=== PATIENT | male | born 1995 | race Caucasian/White ===

== ENCOUNTER 2017-01-20 18:55 | Emergency (ER) | payer BC ==
[2017-01-20 19:02] VITALS: RESP 18
--- NOTE | 2017-01-20 19:17 | EDPHY ---
H & P Stated Complaint: st/fever/n/v jade fatigue seen at [facility] not better post abx Time Seen by Provider: 01/20/17 19:11 HPI/ROS: CHIEF COMPLAINT: Nasal congestion, cough, sore throat, body aches HISTORY OF PRESENT ILLNESS: 21-year-old male presents emergency department complaining of worsening nasal congestion, cough, sore throat and body aches. Patient has had the symptoms for 2 weeks, he was seen at work 1 week ago and started on 300 mg of cefdinir once daily, 20 mg of prednisone once daily and Tessalon Perles. He had a negative rapid strep at this time. No other tests were done. Patient reports post-tussive emesis. Patient denies diarrhea or pain. He reports a headache and pressure in his head which is worse when bending over. He feels pressure in his ears. Patient reports his symptoms have not improved since the medications. REVIEW OF SYSTEMS: A comprehensive 10 point review of systems is otherwise negative aside from elements mentioned in the history of present illness. Source: Patient Exam Limitations: No limitations - Personal History Current Tetanus/Diphtheria Vaccine: Unsure - Medical/Surgical History Hx Asthma: No Hx Chronic Respiratory Disease: No Hx Diabetes: No Hx Cardiac Disease: No Hx Renal Disease: No Hx Cirrhosis: No Hx Alcoholism: No Hx HIV/AIDS: No Other PMH: denies - Social History Smoking Status: Current some day smoker - Physical Exam Exam: General: Alert, nontoxic. ENT: Tympanic membranes clear, external auditory canal, external ear and surrounding soft tissue including over the mastoid unremarkable. Nasopharynx is injected, there is yellow rhinorrhea. Oropharynx with erythema. There is no exudate. Mild bilateral tonsillar hypertrophy. No asymmetry. The uvula is midline. No elevation of tongue. There is no hoarseness. No drooling, patient has good control of their oral secretions. No trismus. No stridor. Cardiac: Tachycardic rate and regular rhythm. Respiratory: Rhonchorous Neurological: no meningismus. Skin: No rashes. Constitutional: Initial Vital Signs Temperature (C) 36.6 C 01/20/17 18:59 Heart Rate 83 01/20/17 18:59 Respiratory Rate 18 01/20/17 18:59 Blood Pressure 120/78 01/20/17 18:59 O2 Sat (%) 95 01/20/17 18:59 O2 Delivery Mode Room Air Allergies/Adverse Reactions: No Known Allergies Allergy (Unverified 01/20/17 18:57) Home Medications: Medication Instructions Recorded Abx For ? Strep Throat 01/20/17 Fluticasone Nasal [Flonase Nasal 1 sprays NASAL DAILY #1 mdi 01/20/17 [place] (RX)] Guaifenesin/Codeine Phosphate 10 ml PO HS PRN #100 ml 01/20/17 [Guaifenesin-Codeine Liquid] Medical Decision Making - Diagnostics Imaging Results: Imaging Impressions Chest X-Ray 01/20/17 19:54 Impression: Findings consistent with airways disease are noted. Imaging: I viewed and interpreted images myself ED Course/Re-evaluation: 21-year-old male presents with URI symptoms x2 weeks not improving on cefdinir and prednisone. Chest x-ray obtained showing no evidence of pneumonia, influenza is negative, mono spot is positive. Patient is given 2 L of normal saline, Tylenol, Sudafed. He is given a DuoNeb in the emergency department. Patient is discharged home with a prescription for guaifenesin with codeine, albuterol inhaler, Flonase. He is instructed to rest, drink plenty of fluids and follow up with the primary care doctor listed he. He is given strict return precautions for worsening symptoms. Patient is given instructions on avoiding physical activity where he could sustain an injury to his abdomen. CBC shows an elevated white blood cell count at 20,000 with a left shift, platelets are normal. Differential Diagnosis: Diagnosis considered but not limited to strep pharyngitis, pneumonia, influenza , mononucleosis - Data Points Laboratory Results: Laboratory Results 01/20/17 20:32 01/20/17 01/20/17 01/20/17 20:32 19:55 19:53 WBC 20.89 10^3/uL H 10^3/uL (3.80-9.50) RBC 5.87 10^6/uL 10^6/uL (4.40-6.38) Hgb 16.5 g/dL g/dL (13.7-17.5) Hct 48.1 % % (40.0-51.0) MCV 81.9 fL fL (81.5-99.8) MCH 28.1 pg pg (27.9-34.1) MCHC 34.3 g/dL g/dL (32.4-36.7) RDW 14.0 % % (11.5-15.2) Plt Count 338 10^3/uL 10^3/uL (150-400) MPV 8.9 fL fL (8.7-11.7) Neut % (Auto) 77.0 % H % (39.3-74.2) Lymph % (Auto) 11.2 % L % (15.0-45.0) Sunflower % (Auto) 10.8 % % (4.5-13.0) Eos % (Auto) 0.0 % L % (0.6-7.6) Baso % (Auto) 0.4 % % (0.3-1.7) Nucleat RBC Rel Count 0.0 % % (0.0-0.2) Absolute Neuts (auto) 16.08 10^3/uL H 10^3/uL (1.70-6.50) Absolute Lymphs (auto) 2.34 10^3/uL 10^3/uL (1.00-3.00) Absolute Monos (auto) 2.26 10^3/uL H 10^3/uL (0.30-0.80) Absolute Eos (auto) 0.01 10^3/uL L 10^3/uL (0.03-0.40) Absolute Basos (auto) 0.08 10^3/uL 10^3/uL (0.02-0.10) Absolute Nucleated RBC 0.00 10^3/uL 10^3/uL (0-0.01) Immature Gran % 0.6 % % (0.0-1.1) Immature Gran # 0.12 10^3/uL H 10^3/uL (0.00-0.10) Monoscreen POSITIVE H (NEGATIVE) Influenza Typ A,B (DFA) NEGATIVE FOR FLU (NEGATIVE) Medications Given: Discontinued Medications Acetaminophen (Tylenol) 650 mg PO EDNOW ONE Stop: 01/20/17 19:40 Last Admin: 01/20/17 19:50 Dose: 650 mg Albuterol/Ipratropium (Duoneb) 3 ml IH EDNOW ONE Stop: 01/20/17 19:40 Last Admin: 01/20/17 19:59 Dose: 3 ml Sodium Chloride (Ns) 1,000 mls @ 0 mls/hr IV ONCE ONE PRN Reason: Wide Open Stop: 01/20/17 20:00 Last Admin: 01/20/17 19:59 Dose: 1,000 mls Pseudoephedrine HCl (Sudafed) 30 mg PO EDNOW ONE Stop: 01/20/17 19:42 Last Admin: 01/20/17 19:50 Dose: 30 mg Departure - Departure Disposition: Home, Routine, Self-Care Clinical Impression: Mononucleosis Condition: Good Instructions: Mononucleosis (ED), Albuterol (By breathing), Narcotic- Antitussive/Antihistamine/Decongestant (By mouth), Ondansetron (By mouth) Additional Instructions: Drink plenty of fluids Take 600 mg of ibuprofen every 8 hours with food as needed for fevers, sore throat and body aches Take 650 mg of Tylenol every 8 hours. You can alternate these every 4 hours. Take 4 mg of Zofran every 8 hours as needed for nausea Use 2 puffs of albuterol every 4-6 hours as needed for cough Use 2 sprays of Flonase in each nostril daily for 7 days Use a saline nasal rinse twice daily. Rest. Do not do any physical activity or contact sports where you could sustain an injury to your abdomen Follow-up with the primary care doctor listed for symptoms that are not improving in the next 7-10 days, return to the emergency department for worsening symptoms, new symptoms or concerns. Referrals: Jeff Rodriguez DO [Medical Doctor] - As per Instructions (primary care doctor client application support specialist) Prescriptions: Fluticasone Nasal [Flonase Nasal [place] (RX)] 1 sprays NASAL DAILY #1 mdi Guaifenesin/Codeine Phosphate [Guaifenesin-Codeine Liquid] 10 ml PO HS PRN #100 ml PRN Reason: Cough, Moderate
[2017-01-20] MEDS ORDERED: ACETAMINOPHEN 325 MG TAB PO ONE (19:39)
[2017-01-20] MEDS ORDERED: IPRATROPIUM/ALBUTEROL 3 ML DEYVIAL IH ONE (19:39)
[2017-01-20] MEDS ORDERED: PSEUDOEPHEDRINE HCL 30 MG TAB PO ONE (19:41)
[2017-01-20] MEDS ORDERED: IPRATROPIUM/ALBUTEROL 3 ML DEYVIAL ONE (19:42)
[2017-01-20] MEDS ORDERED: ACETAMINOPHEN 500 MG TAB ONE (19:43)
[2017-01-20] MEDS ORDERED: NS 1,000 ML IV ONE (19:59)
[2017-01-20 20:35] LABS: % IMMATURE GRANULYOCYTES 0.6 % (0.0-1.1); ABSOLUTE IMMATURE GRANULOCYTES 0.12 10^3/uL (0.00-0.10); ADD DIFF? NO; ADD MORPH? NO; ADD SCAN? NO; ATYPICAL LYMPHOCYTE FLAG 70 (0-99); FRAGMENT RBC FLAG 0 (0-99); HEMATOCRIT 48.1 % (40.0-51.0); HEMOGLOBIN 16.5 g/dL (13.7-17.5); LEFT SHIFT FLG 20 (0-99); LIPEMIA HEMOLYSIS FLAG 90 (0-99); MEAN CELL HEMOGLOBIN 28.1 pg (27.9-34.1); MEAN CELL HEMOGLOBIN CONCENTR. 34.3 g/dL (32.4-36.7); MEAN CELL VOLUME 81.9 fL (81.5-99.8); MEAN PLATELET VOLUME 8.9 fL (8.7-11.7); PLATELET CLUMPS FLAG 10 (0-99); PLATELET COUNT 338 10^3/uL (150-400); RED BLOOD CELL COUNT 5.87 10^6/uL (4.40-6.38)
[2017-01-20] MEDS ORDERED: ALBUTEROL INH PREPACK MDI TAKEHOME ONE (21:24)
[2017-01-20] MEDS ORDERED: guaiFENesin/CODEINE PHOS 10 ML UDCUP PO ONE (21:24)
[2017-01-20] MEDS ORDERED: ONDANSETRON 4MG PREPACK#2 BTL TAKEHOME ONE (21:24)
[2017-01-20 21:50] VITALS: BP 118/72; PULSE 79; TEMP 98.2; O2SAT 98
== END 2017-01-20 21:50 | disposition home or self-care (01) ==
DX: B27.90 Infectious mononucleosis, unspecified without complication (principal); F17.200 Nicotine dependence, unspecified, uncomplicated